=== PATIENT | male | born 1945 | race Caucasian/White ===

== ENCOUNTER 2018-05-01 09:35 | Outpatient (CLI) | payer OTHER ==
--- NOTE | 2018-05-01 15:42 | NM ---
[facility] BRAIN IMAGING: HISTORY: Parkinson's disease. TECHNIQUE: A RADHA scan with axial tomographic images of the brain was performed 3 hours after the intravenous adm inistration of 4.8 mCi iodine-123 Ioflupane. The patient was pretreated with 130 mg of potassium iod hiral orally 1 hour prior to the injection. FINDINGS: There is normal symmetric uptake in the striate bilaterally, demonstrating symmetric, crescent-shaped focal regions of activity mirrored about the median plane. IMPRESSION: Normal exam. POS: C
== END 2018-05-01 09:36 | disposition home or self-care (01) ==
LOC: NM 09:35
DX: G20 Parkinson's disease (principal)
CPT/HCPCS: 78607; A9584